=== PATIENT | male | born 1945 | race American Indian/Alaskan Native ===

== ENCOUNTER 2016-07-16 09:26 | Emergency (ER) | payer MEDICARE ==
[~2016-07-16] VITALS: Ht 152.4 cm; Wt 49.8 kg
[~2016-07-16 09:26] MED LIST: Amlodipine Besylate PO; CEFD300C37 PO; DOXY100T PO; GLIP5TAB10 PO; HEPA5000 SQ; HYDR-3138 PO; HYDR473S47 PO; INSU100C SQ-INSULIN; INSU100I18 SQ-INSULIN; INSU100I28 SQ-INSULIN; LISI-170 PO; METF10002 PO; METF500T27 PO; METO25TA35 PO; METO50TA82 PO; NYST1000 PO; OMEP-110 PO; ONDA-39 PO; PANT40TA3 PO; POTA20TA14 PO; SUCR1ORA11 PO
[2016-07-16 11:48] VITALS: BP 153/64
[2016-07-16] MEDS ORDERED: ACETAMINOPHEN 500 MG TABLET PO ONE (12:00)
[2016-07-16] MEDS ORDERED: SODIUM CHLORIDE 0.9% 1,000ML IVBOLUS ONE (12:00)
[2016-07-16] MEDS ORDERED: SODIUM CHLORIDE FLUSH 10ML SYR IVF ONE (12:00)
[2016-07-16] MEDS ORDERED: KETOROLAC 30 MG/1 ML IVPush ONE (12:00)
== END 2016-07-16 11:49 | disposition home or self-care (01) ==
LOC: ED 11:37
DX: T85.598A Other mechanical complication of other gastrointestinal prosthetic devices, implants and grafts, initial encounter (principal); E11.9 Type 2 diabetes mellitus without complications; I10 Essential (primary) hypertension; Z90.49 Acquired absence of other specified parts of digestive tract
CPT/HCPCS: 99284

== ENCOUNTER 2017-01-08 05:19 | Day surgery (SDC) | payer MEDICARE, MEDICAID ==
[2017-01-05 12:16] VITALS: BP 137/83
[2017-01-05 14:15] LABS: ASPARTATE AMINO TRANSFERASE 27 U/L (15-37); BLOOD UREA NITROGEN 31 mg/dL (7-18)
[~2017-01-08] VITALS: Ht 154.9 cm; Wt 54.5 kg
[~2017-01-08 05:19] MED LIST changes: -HYDR-3138 PO; +HYDR-3237 PO; -ONDA-39 PO; +ONDA4TAB12 PO; +statin PO
[2017-01-08] MEDS ORDERED: LACTATED RINGERS 1,000 ML IV SCH (05:55)
[2017-01-08] MEDS ORDERED: LIDOCAINE 1%, 2ML SQ PRN (06:00)
[2017-01-08] MEDS ORDERED: DEXAMETHASONE 4 MG/ML, 1ML ONE (07:43)
[2017-01-08] MEDS ORDERED: PROPOFOL 10 MG/ML, 20ML ONE (07:43)
[2017-01-08] MEDS ORDERED: ONDANSETRON 2MG/ML, 2ML ONE (07:43)
[2017-01-08] MEDS ORDERED: MIDAZOLAM 1 MG/ML, 2ML IV PRN (08:30)
[2017-01-08] MEDS ORDERED: PROMETHAZINE 25 MG/ML, 1ML IV PRN (08:30)
[2017-01-08] MEDS ORDERED: ONDANSETRON 2MG/ML, 2ML IVPush PRN (08:30)
[2017-01-08] MEDS ORDERED: FENTANYL PF 100 MCG/2ML IV PRN (08:30)
[2017-01-08] MEDS ORDERED: HYDROmorphone 1 MG/ML, 1ML IV PRN (08:30)
[2017-01-08] MEDS ORDERED: LABETALOL 5MG/ML, 20ML ONE (08:49)
[2017-01-08] MEDS ORDERED: LABETALOL 5MG/ML, 20ML IV PRN (09:00)
[2017-01-08] MEDS ORDERED: hydrALAzine 20 MG/ML, 1ML IV PRN (09:00)
== END 2017-01-08 10:10 ==
LOC: OR 05:19
PROVIDERS: ATTEND Internal Medicine
DX: K22.2 Esophageal obstruction (principal)
CPT/HCPCS: 36415; 43249; 80053; 82962; 93005; C1725; C1769; J1100; J2405; J2704; J3490; J7120

== ENCOUNTER 2017-01-30 11:16 | Day surgery (SDC) | payer MEDICARE, MEDICAID ==
[~2017-01-30] VITALS: Ht 154.9 cm; Wt 52.6 kg
[~2017-01-30 11:16] MED LIST changes: -HEPA5000 SQ; +HEPA50002 SQ
[2017-01-30] MEDS ORDERED: LACTATED RINGERS 1,000 ML IV SCH (11:26)
[2017-01-30 11:27] VITALS: BP 123/85
[2017-01-30] MEDS ORDERED: PROPOFOL 10 MG/ML, 20ML ONE (12:26)
[2017-01-30] MEDS ORDERED: ONDANSETRON 2MG/ML, 2ML ONE (12:26)
[2017-01-30] MEDS ORDERED: OXYcodone 5 MG/5 ML ORAL.SOL UDC PO PRN (13:30)
[2017-01-30] MEDS ORDERED: ACETAMINOPHEN 325 MG TABLET PO PRN (13:30)
[2017-01-30] MEDS ORDERED: ONDANSETRON 2MG/ML, 2ML IVPush PRN (13:30)
[2017-01-30] MEDS ORDERED: HYDROcodone/APAP 7.5-325MG/15ML UDC PO PRN (13:30)
[2017-01-30] MEDS ORDERED: hydrALAzine 20 MG/ML, 1ML ONE (13:46)
[2017-01-30] MEDS: FENTANYL PF 100 MCG/2ML IV PRN ×2 (13:55→14:06)
[2017-01-30] MEDS ORDERED: FENTANYL PF 100 MCG/2ML ONE (13:55)
[2017-01-30] MEDS ORDERED: hydrALAzine 20 MG/ML, 1ML IV PRN (14:00)
== END 2017-01-30 16:25 ==
LOC: OUT 11:16
PROVIDERS: ATTEND Internal Medicine
DX: K22.2 Esophageal obstruction (principal)
CPT/HCPCS: 43247; 43249; 82962; C1725; J0360; J2405; J2704; J3010; J7120

== ENCOUNTER 2017-02-21 08:03 | Inpatient (IN) | payer MEDICARE, MEDICAID ==
[~2017-02-21] VITALS: Ht 152.4 cm; Wt 54.9 kg
[2017-02-21] MEDS ORDERED: SODIUM CHLORIDE 0.9% 1,000ML IVBOLUS ONE (08:30)
[2017-02-21] MEDS ORDERED: ONDANSETRON 2MG/ML, 2ML IVPush ONE (08:30)
[2017-02-21] MEDS ORDERED: SODIUM CHLORIDE FLUSH 10ML SYR IVF ONE (08:30)
[2017-02-21 09:15] LABS: BLOOD UREA NITROGEN 23 mg/dL (7-18)
[2017-02-21] MEDS ORDERED: ONDANSETRON 2MG/ML, 2ML ONE (09:19)
[2017-02-21] MEDS ORDERED: MORPHINE SULFATE 4 MG/ML, 1ML ONE ×2 (09:19→10:37)
[2017-02-21 09:20] LABS: IS PT STATUS REG ER OR PRE ER? YES
[2017-02-21 09:41] LABS: HEMATOCRIT 42.6 % (39.2-51.8); HEMOGLOBIN 14.4 g/dL (13.7-18.0); WHITE BLOOD COUNT 5.5 x10^3/uL (3.4-10)
[2017-02-21] MEDS: MORPHINE SULFATE 4 MG/ML, 1ML IVPush PRN ×2 (09:42→10:46)
[2017-02-21] MEDS ORDERED: OMNIPAQUE 350 MG/ML, 75ML BOTTLE ONE (10:28)
[2017-02-21] MEDS ORDERED: ACETAMINOPHEN 325 MG TABLET PO PRN (12:00)
[2017-02-21] MEDS ORDERED: ONDANSETRON ODT 4 MG PO PRN (12:00)
[2017-02-21] MEDS ORDERED: ONDANSETRON 2MG/ML, 2ML IVPush PRN (12:00)
[2017-02-21] MEDS ORDERED: HYDROcodone/APAP 5/325 TABLET PO PRN (12:00)
[2017-02-21] MEDS ORDERED: ENOXAPARIN 40 MG/0.4 ML ONE (12:23)
[2017-02-21] MEDS: ENOXAPARIN 40 MG/0.4 ML SQ SCH (12:25)
[2017-02-21] MEDS: INSULIN ASPART 100 UNITS/ML, PEN SQ-INSULIN SCH ×3 (12:30→20:20)
[2017-02-21] MEDS ORDERED: KETOROLAC 30 MG/1 ML IVPush PRN (12:30)
[2017-02-21] MEDS: morphine SULFATE 10 MG/ML, 1ML IVPush PRN ×2 (13:58→20:55)
[2017-02-21] MEDS: SODIUM CHLORIDE 0.9% 1,000 ML IV SCH (13:58)
[2017-02-21 14:34] LABS: IS PT STATUS REG ER OR PRE ER? NO
[2017-02-21 15:58] VITALS: BP 124/66
[2017-02-21 19:54] LABS: IS PT STATUS REG ER OR PRE ER? NO
[2017-02-21] MEDS: OMEPRAZOLE 20 MG CAPSULE.DR PO SCH (20:20)
[2017-02-21 20:57] VITALS: BP 129/72
[2017-02-22 00:11] VITALS: BP 124/59
[2017-02-22] MEDS: morphine SULFATE 10 MG/ML, 1ML IVPush PRN ×2 (01:23→17:03)
[2017-02-22] MEDS: SODIUM CHLORIDE 0.9% 1,000 ML IV SCH ×2 (02:31→15:37)
[2017-02-22 06:18] LABS: HEMATOCRIT 38.3 % (39.2-51.8); HEMOGLOBIN 13.1 g/dL (13.7-18.0)
[2017-02-22 06:32] LABS: BLOOD UREA NITROGEN 12 mg/dL (7-18)
[2017-02-22 06:33] LABS: ASPARTATE AMINO TRANSFERASE 25 U/L (15-37)
[2017-02-22 06:54] VITALS: BP 153/75
[2017-02-22] MEDS: INSULIN ASPART 100 UNITS/ML, PEN SQ-INSULIN SCH ×4 (07:00→21:00)
[2017-02-22] MEDS ORDERED: LACTULOSE 20 GM/30 ML UDC PO PRN (10:30)
[2017-02-22] MEDS ORDERED: DOCUSATE 50 MG/5 ML ORAL SOL PO PRN (10:30)
[2017-02-22] MEDS ORDERED: SENNA/DOCUSATE TABLET PO PRN (10:30)
[2017-02-22] MEDS ORDERED: BISACODYL 10 MG SUPP PR PRN (10:30)
[2017-02-22] MEDS: OMEPRAZOLE 20 MG CAPSULE.DR PO SCH ×2 (10:32→20:02)
[2017-02-22 11:54] LABS: PATH.CAST-FLAG NOT PRESENT; SPERM-FLAG NOT PRESENT; SRC-FLAG NOT PRESENT; XTAL-FLAG NOT PRESENT; YLC-FLAG NOT PRESENT
[2017-02-22] MEDS: ENOXAPARIN 40 MG/0.4 ML SQ SCH (13:11)
[2017-02-22 14:35] VITALS: BP 150/79
[2017-02-22 19:35] VITALS: BP 130/76
[2017-02-23 02:46] VITALS: BP 150/80
[2017-02-23] MEDS: SODIUM CHLORIDE 0.9% 1,000 ML IV SCH ×2 (04:44→19:27)
[2017-02-23] MEDS: morphine SULFATE 10 MG/ML, 1ML IVPush PRN ×3 (04:45→21:19)
[2017-02-23 05:24] LABS: HEMATOCRIT 36.3 % (39.2-51.8); HEMOGLOBIN 12.6 g/dL (13.7-18.0); WHITE BLOOD COUNT 3.2 x10^3/uL (3.4-10)
[2017-02-23 05:35] LABS: BLOOD UREA NITROGEN 10 mg/dL (7-18)
[2017-02-23] MEDS: INSULIN ASPART 100 UNITS/ML, PEN SQ-INSULIN SCH ×4 (07:00→21:19)
[2017-02-23] MEDS ORDERED: CEFTRIAXONE PMX 1GM/50ML 50 ML IV SCH (08:00)
[2017-02-23 08:06] VITALS: BP 122/70
[2017-02-23] MEDS: OMEPRAZOLE 20 MG CAPSULE.DR PO SCH ×2 (09:03→21:19)
[2017-02-23] MEDS: LEVOTHYROXINE 75 MCG TABLET PO SCH (09:03)
[2017-02-23] MEDS: DOCUSATE 50 MG/5 ML, 10ML UDC PO SCH (09:03)
[2017-02-23] MEDS ORDERED: INSU100I18 SQ-INSULIN (09:18)
[2017-02-23] MEDS ORDERED: SENN1TAB7 PO (09:18)
[2017-02-23] MEDS ORDERED: ONDA4TAB13 PO (09:18)
[2017-02-23] MEDS ORDERED: TRAM50TA2 PO (09:18)
[2017-02-23] MEDS ORDERED: LEVO75TA PO (09:18)
[2017-02-23] MEDS ORDERED: LACT20SO13 PO (09:18)
[2017-02-23] MEDS ORDERED: BISA10SU65 PR (09:18)
[2017-02-23] MEDS ORDERED: SULF-169 PO (09:18)
[2017-02-23] MEDS ORDERED: DOCU50LI12 PO (09:18)
[2017-02-23] MEDS ORDERED: ENOX40SY4 SQ (09:18)
[2017-02-23] MEDS ORDERED: KETO30VI27 IVPush (09:18)
[2017-02-23] MEDS ORDERED: ACET325T14 PO (09:18)
[2017-02-23] MEDS ORDERED: HYDR-3240 PO (09:18)
[2017-02-23] MEDS ORDERED: BISACODYL 10 MG SUPP PR SCH (09:30)
[2017-02-23] MEDS ORDERED: SULFAMETH./TRIMETHOPRIM DS 800MG/160MG TABLET PO SCH (09:30)
[2017-02-23] MEDS: ENOXAPARIN 40 MG/0.4 ML SQ SCH (12:15)
[2017-02-23 13:50] VITALS: BP 144/73
[2017-02-23] MEDS ORDERED: DIPHENHYDRAMINE 25 MG CAPSULE PO PRN (16:30)
[2017-02-23 20:01] VITALS: BP 154/80
[2017-02-23] MEDS: SULFAMETH/TRIMETHOPRIM 40-8MG/ML SUSP. PO SCH ×2 (21:19→23:19)
[2017-02-24 02:16] VITALS: BP 149/85
[2017-02-24] MEDS: morphine SULFATE 10 MG/ML, 1ML IVPush PRN ×2 (03:02→06:04)
[2017-02-24] MEDS: LEVOTHYROXINE 75 MCG TABLET PO SCH (06:04)
[2017-02-24 07:20] VITALS: BP 154/79
[2017-02-24] MEDS: SODIUM CHLORIDE 0.9% 1,000 ML IV SCH (09:22)
[2017-02-24] MEDS: DOCUSATE 50 MG/5 ML, 10ML UDC PO SCH (09:22)
[2017-02-24] MEDS: SULFAMETH/TRIMETHOPRIM 40-8MG/ML SUSP. PO SCH (09:22)
[2017-02-24] MEDS: OMEPRAZOLE 20 MG CAPSULE.DR PO SCH (09:22)
[2017-02-24] MEDS: INSULIN ASPART 100 UNITS/ML, PEN SQ-INSULIN SCH ×3 (09:31→17:37)
[2017-02-24 14:00] VITALS: BP 134/77
[2017-02-24] MEDS: ENOXAPARIN 40 MG/0.4 ML SQ SCH (17:37)
== END 2017-02-24 16:49 | DRG 184 ==
LOC: ED 09:51 → EDIP 09:52 → ED 10:07 → 4EST 13:47
PROVIDERS: ADMIT Hospitalist; ATTEND Hospitalist
DX: S22.42XA Multiple fractures of ribs, left side, initial encounter for closed fracture (principal); J98.11 Atelectasis; D69.6 Thrombocytopenia, unspecified; S27.0XXA Traumatic pneumothorax, initial encounter; I69.398 Other sequelae of cerebral infarction; K22.2 Esophageal obstruction; Z93.1 Gastrostomy status; N39.0 Urinary tract infection, site not specified; R55 Syncope and collapse; I10 Essential (primary) hypertension; E78.5 Hyperlipidemia, unspecified; E11.9 Type 2 diabetes mellitus without complications; E03.9 Hypothyroidism, unspecified; K22.8 Other specified diseases of esophagus; Z79.4 Long term (current) use of insulin; Z82.49 Family history of ischemic heart disease and other diseases of the circulatory system; Z87.19 Personal history of other diseases of the digestive system; Z87.11 Personal history of peptic ulcer disease; Z83.3 Family history of diabetes mellitus; R07.89 Other chest pain; W18.30XA Fall on same level, unspecified, initial encounter; Y93.89 Activity, other specified; Y92.89 Other specified places as the place of occurrence of the external cause; Y99.8 Other external cause status
CPT/HCPCS: 36415; 71260; 80048; 80053; 81001; 82040; 82962; 83735; 84100; 84439; 84443; 84484; 85025; 87077; 87086; 87186; 93005; 93306; 93880; 96361; 96372; 96374; 96375; 96376; J0696; J1650; J1815; J2405; Q0162; Q9967; J2270; J7030; Q0163